=== PATIENT | female | born 1960 | race Caucasian/White ===

== ENCOUNTER 2021-02-25 15:45 | Emergency (ER) | payer MEDICARE, OTHER ==
[~2021-02-25] VITALS: Ht 165.1 cm; Wt 74.0 kg
[~2021-02-25 15:45] MED LIST: AMLODIPINE BESYL5 MG PO; ASPIR-LOW81 MG PO; CIPRO500 MG PO; FLAGYL500 MG PO; HYDROCODON-ACE1 EA10 PO; LEVEMIR100 UNIT/1 SUB-Q; LEVOTHYROXINE75 MCG PO; LISINOPRIL40 MG PO; METOPROLOL TART25 MG PO; NAPROSYN500 MG PO; NICOTINE PATCH1 EA TD; NOVOLOG100 UNITS/ SUB-Q; OMEPRAZOLE20 MG PO; VALIUM5 MG PO; VERAPAMIL HCL120 MG PO
[2021-02-25] MEDS ORDERED: ZOFRAN4 MG PO (21:07)
--- NOTE | 2021-02-26 00:30 | EKG ---
[facility] [address] [place] [address] Signed Sinus tachycardia Left axis deviation Minimal voltage criteria for LVH, may be normal variant Nonspecific ST abnormality Abnormal ECG When compared with ECG of 24-SEP-2016 19:33, Vent. rate has increased BY 54 BPM Criteria for Septal infarct are no longer present T wave amplitude has increased in Anterior leads Confirmed by PRIETO WONG MD ([id number]) on 02/26/2021 12:29:56 AM Electronically Signed By: PRIETO WONG MD 02/26/21 0030 PATIENT NAME: ABRIL AMADOR Electrocardiogram DATE OF : 62 PHYSICIAN: PRIETO WONG MD REPORT #: [id number] REPORT IS CONFIDENTIAL AND NOT TO BE RELEASED WITHOUT AUTHORIZATION
== END 2021-02-25 21:52 | disposition home or self-care (01) ==
LOC: ED 15:45
DX: R11.2 Nausea with vomiting, unspecified (principal); E86.0 Dehydration; R00.0 Tachycardia, unspecified; R50.9 Fever, unspecified; Z20.822 Contact with and (suspected) exposure to COVID-19; I10 Essential (primary) hypertension; E03.9 Hypothyroidism, unspecified; E11.9 Type 2 diabetes mellitus without complications; Z87.891 Personal history of nicotine dependence; Z88.5 Allergy status to narcotic agent; Z79.899 Other long term (current) drug therapy; Z79.4 Long term (current) use of insulin
CPT/HCPCS: 71045; 80053; 81001; 83605; 83735; 84484; 85025; 93005; 93010; 96374; 96375; 99284-25; C9803; J1885; J2405; J7030; U0003

== ENCOUNTER 2021-08-09 16:00 | Emergency (ER) | payer MEDICARE, OTHER ==
[~2021-08-09] VITALS: Ht 165.1 cm; Wt 67.2 kg
[~2021-08-09 16:00] MED LIST changes: +ZOFRAN4 MG PO
[2021-08-09] MEDS ORDERED: GABAPENTIN100 MG PO (16:18)
[2021-08-09] MEDS ORDERED: JANUVIA100 MG PO (16:18)
[2021-08-09] MEDS ORDERED: GLIMEPIRIDE2 MG PO (16:18)
[2021-08-09] MEDS ORDERED: AUGMENTIN XR 11 EACH PO (18:41)
== END 2021-08-09 18:55 | disposition home or self-care (01) ==
LOC: ED 16:00
DX: J01.90 Acute sinusitis, unspecified (principal); B96.89 Other specified bacterial agents as the cause of diseases classified elsewhere; Z20.822 Contact with and (suspected) exposure to COVID-19; I10 Essential (primary) hypertension; E03.9 Hypothyroidism, unspecified; E11.9 Type 2 diabetes mellitus without complications; Z87.891 Personal history of nicotine dependence; Z88.5 Allergy status to narcotic agent; Z79.899 Other long term (current) drug therapy
CPT/HCPCS: 70486; 71045; 80053; 83605; 85007; 85025; 99285-25; C9803; J7030; U0003

== ENCOUNTER 2021-11-23 10:40 | Emergency (ER) | payer MEDICARE, OTHER ==
[~2021-11-23] VITALS: Ht 165.1 cm; Wt 74.9 kg
[~2021-11-23 10:40] MED LIST changes: +AUGMENTIN XR 11 EACH PO; +GABAPENTIN100 MG PO; +GLIMEPIRIDE2 MG PO; +JANUVIA100 MG PO
--- OUTSIDE RECORDS SUMMARY | 2021-11-23 10:42 | XMS ---
PreManage Notification: ABRIL AMADOR Security Customer Assistance Representative Events No recent Security Events currently on file CRITERIA MET - [facility] There are no care providers on record at this time. Brayan has no Care Guidelines for this patient. [place] VISIT COUNT (12 MO.) 3 APARNA Crain TOTAL 3 NOTE: Visits indicate total known visits. ED/C VISIT TRACKING (12 MO.) 11/23/2021 10:41 [facility] [place] TYPE: Emergency COMPLAINT: - LOWER ABDOMINAL PAIN 08/09/2021 16:01 [facility] [place] TYPE: Emergency COMPLAINT: - COLD SYMPTOMS, FATIGUE DIAGNOSES: - Type 2 diabetes mellitus without complications - Other specified bacterial agents as the cause of diseases classified elsewhere - Essential (primary) hypertension - Acute sinusitis, unspecified - Hypothyroidism, unspecified - Other medical terminologist (current) drug therapy - Personal history of nicotine dependence - Fever, unspecified - Allergy status to narcotic agent 02/25/2021 15:45 [facility] [place] TYPE: Emergency COMPLAINT: - [place] DIAGNOSES: - Personal history of nicotine dependence - Tachycardia, unspecified - marine oil terminal superintendent (current) use of insulin - Fever, unspecified - Hypothyroidism, unspecified - Vomiting, unspecified - Essential (primary) hypertension - Dehydration - Fever, unspecified - Type 2 diabetes mellitus without complications - Other medical terminologist (current) drug therapy - Allergy status to narcotic agent - Nausea with vomiting, unspecified INPATIENT VISIT TRACKING (12 MO.) No inpatient visits to display in this time frame [email or web address]
[2021-11-23] MEDS ORDERED: JARDIANCE25 MG PO (12:27)
[2021-11-23] MEDS ORDERED: PYRIDIUM200 MG PO (12:41)
[2021-11-23] MEDS ORDERED: CEFDINIR300 MG PO (12:41)
== END 2021-11-23 13:00 | disposition home or self-care (01) ==
LOC: ED 10:40
DX: N39.0 Urinary tract infection, site not specified (principal); Z20.822 Contact with and (suspected) exposure to COVID-19; I10 Essential (primary) hypertension; E03.9 Hypothyroidism, unspecified; E11.9 Type 2 diabetes mellitus without complications; Z87.891 Personal history of nicotine dependence; Z88.5 Allergy status to narcotic agent; Z79.899 Other long term (current) drug therapy
CPT/HCPCS: 81001; 99284; C9803; U0003